=== PATIENT | male | born 1940 ===

== ENCOUNTER 2018-02-10 00:39 | Inpatient (IN) | payer OTHER ==
[~2018-02-10] VITALS: Ht 172.7 cm; Wt 75.3 kg
[2018-02-10] MEDS: NACL 0.9% 1,000 ML IV SCH (09:17)
[2018-02-10] MEDS ORDERED: HYDROcodone/APAP 5/325 MG 1 TAB TAB PO PRN (09:20)
[2018-02-10] MEDS ORDERED: ALBUTEROL SULFATE/IPRATROPIU 3 ML SOL IH PRN (09:20)
[2018-02-10] MEDS ORDERED: DOCUSATE SODIUM 100 MG GELCAP PO PRN (09:20)
[2018-02-10] MEDS ORDERED: MORPHINE SULFATE 2 MG/ML SYR IVP PRN (09:20)
[2018-02-10] MEDS ORDERED: MAGNESIUM HYDROXIDE 2400 MG/30 ML UDC PO PRN (09:20)
[2018-02-10] MEDS ORDERED: BISACODYL 5 MG TABEC PO PRN (09:20)
[2018-02-10] MEDS ORDERED: LORazepam 2 MG/ML VIAL IM/IVP PRN (09:20)
[2018-02-10] MEDS ORDERED: ZOLPIDEM 5 MG TAB PO PRN (09:20)
[2018-02-10] MEDS ORDERED: ONDANSETRON 4 MG/2 ML VIAL IM/IVP PRN (09:20)
[2018-02-10 09:30] VITALS: BP 121/71
[2018-02-10] MEDS ORDERED: AZITHROMYCIN 250 MG TAB PO SCH (10:41)
[2018-02-10 10:51] LABS: BASOPHILS % (AUTO) 0.5 % (0.0-2.0); EOSINOPHILS # (AUTO) 0.5 K/uL (0-0.4); EOSINOPHILS % (AUTO) 7.8 % (0.0-4.0); HEMATOCRIT 40.4 % (36-52); HEMOGLOBIN 13.7 g/dL (12.0-18.0); LYMPHOCYTES % (AUTO) 15.9 % (20.5-51.1); MEAN CORPUSCULAR HEMOGLOBIN 35 pg (27-31); MEAN CORPUSCULAR HGB CONC 34 g/dL (33-37); MEAN CORPUSCULAR VOLUME 104.5 fL (80-94); MONOCYTES # (AUTO) 0.6 K/uL (0.8-1.0); MONOCYTES % (AUTO) 10.3 % (1.7-9.3); NEUTROPHILS % (AUTO) 65.5 % (42.2-75.2); PLATELET COUNT (AUTO) 205 K/uL (140-450); RED BLOOD CELL COUNT(AUTO) 3.87 MIL/uL (4.20-6.10); RED CELL DISTRIBUTION WIDTH 14.4 % (11.6-13.7)
[2018-02-10 11:23] LABS: MAGNESIUM 1.9 mg/dL (1.8-2.4); PHOSPHORUS 3.5 mg/dL (2.5-4.9); THYROID STIMULATING HORMONE 2.56 uIU/mL (0.34-3.74)
[2018-02-10 11:25] LABS: PROTHROMBIN TIME 10.4 secs (10.8-13.4)
[2018-02-10 12:00] VITALS: BP 122/70
[2018-02-10 12:07] LABS: ASPARTATE AMINOTRANSFERASE 25 U/L (15-37); CARBON DIOXIDE 27.2 mmol/L (21-32); CHLORIDE 103 mmol/L (98-107); CHOL/HDL RATIO 3.8 (1-4.5); CREATININE 0.9 mg/dL (0.7-1.3); GLUCOSE 99 mg/dL (74-106); HDL CHOLESTEROL 32 mg/dL (40-60); LDL (CALC) 71 mg/dL (60-100); POTASSIUM 4.2 mmol/L (3.5-5.1); SODIUM SERUM 139 mmol/L (136-145); TOTAL BILIRUBIN 0.5 mg/dL (0.0-1.0); TRIGLYCERIDES 101 mg/dL (30-150); UREA NITROGEN, BLOOD 11 mg/dL (7-18)
[2018-02-10] MEDS: ALBUTEROL SULFATE/IPRATROPIU 3 ML SOL IH SCH ×4 (12:09→23:17)
[2018-02-10] MEDS: methylPREDNISolone SS 125 MG/2 ML VIAL IVP SCH ×2 (13:00→22:09)
[2018-02-10] MEDS: ACETAMINOPHEN 325 MG TAB PO PRN (15:25)
[2018-02-10 16:00] VITALS: BP 107/72
[2018-02-10 17:36] LABS: APPEARANCE,URINE CLEAR (CLEAR); BILIRUBIN,URINE NEGATIVE (NEGATIVE); BLOOD, URINE NEGATIVE (NEGATIVE); COLOR,URINE YELLOW (YELLOW); LEUKOCYTE ESTERASE ,URINE NEGATIVE (NEGATIVE); NITRITE, URINE NEGATIVE (NEGATIVE); UGLUCOSE NEGATIVE (NEGATIVE)
[2018-02-10 17:45] LABS: BARBITURATE, URINE NEG. ng/ml (NEG <=200); BENZODIAZEPINE, URINE NEG. ng/mL (NEG <=200); CANNABINOID, URINE NEG. ng/mL (NEG <=50); COCAINE, URINE NEG. ng/mL (NEG <=300); OPIATE, URINE POS. ng/mL (NEG <=2000); PHENCYCLIDINE SCREEN,URINE NEG. ng/mL (NEG <=25)
[2018-02-10] MEDS: BUDESONIDE 0.5 MG/2 ML NEBU INH SCH (19:14)
[2018-02-10 20:00] VITALS: BP 103/57
[2018-02-10] MEDS: MONTELUKAST SODIUM 10 MG TAB PO SCH (22:09)
[2018-02-11] VITALS: BP 90/45
[2018-02-11] MEDS: ALBUTEROL SULFATE/IPRATROPIU 3 ML SOL IH SCH ×6 (03:13→23:20)
[2018-02-11 04:00] VITALS: BP 111/49
[2018-02-11] MEDS: methylPREDNISolone SS 125 MG/2 ML VIAL IVP SCH (05:43)
[2018-02-11 06:19] LABS: FOLIC ACID 8.3 ng/mL (>3.0)
[2018-02-11] MEDS: BUDESONIDE 0.5 MG/2 ML NEBU INH SCH ×2 (06:30→19:52)
[2018-02-11 07:53] VITALS: BP 127/66
[2018-02-11] MEDS: NACL 0.9% 1,000 ML IV SCH (09:17)
[2018-02-11] MEDS: LACTOBACILLUS RHAMNOSUS GG 1 EACH CAP PO SCH (09:30)
[2018-02-11] MEDS: AZITHROMYCIN 250 MG TAB PO SCH (09:31)
[2018-02-11] MEDS: ACETAMINOPHEN 325 MG TAB PO PRN (14:26)
[2018-02-11 15:52] VITALS: BP 123/74
[2018-02-11 20:00] VITALS: BP 125/72
[2018-02-11] MEDS: MONTELUKAST SODIUM 10 MG TAB PO SCH (21:12)
[2018-02-12] VITALS: BP 97/49
[2018-02-12] MEDS: ALBUTEROL SULFATE/IPRATROPIU 3 ML SOL IH SCH ×3 (03:44→11:39)
[2018-02-12] MEDS: BUDESONIDE 0.5 MG/2 ML NEBU INH SCH (07:20)
[2018-02-12 08:00] VITALS: BP 144/80
[2018-02-12] MEDS: AZITHROMYCIN 250 MG TAB PO SCH (08:40)
[2018-02-12] MEDS: LACTOBACILLUS RHAMNOSUS GG 1 EACH CAP PO SCH (08:40)
[2018-02-12] MEDS ORDERED: ACET-2858 PO (09:06)
[2018-02-12] MEDS ORDERED: ALBU3SOL83 IH (09:08)
[2018-02-12] MEDS ORDERED: AZIT250T3 PO (09:16)
[2018-02-12 12:00] VITALS: BP 128/72
== END 2018-02-12 12:24 | disposition hospice, home (50) | DRG 193 ==
LOC: MTU 09:09
PROVIDERS: ADMIT General Practice; ATTEND General Practice
DX: J18.9 Pneumonia, unspecified organism (principal); J96.20 Acute and chronic respiratory failure, unspecified whether with hypoxia or hypercapnia; S32.019A Unspecified fracture of first lumbar vertebra, initial encounter for closed fracture; E46 Unspecified protein-calorie malnutrition; J44.1 Chronic obstructive pulmonary disease with (acute) exacerbation; J44.0 Chronic obstructive pulmonary disease with (acute) lower respiratory infection; Z51.5 Encounter for palliative care; D64.9 Anemia, unspecified; J84.112 Idiopathic pulmonary fibrosis; M47.9 Spondylosis, unspecified; W18.30XA Fall on same level, unspecified, initial encounter; D75.89 Other specified diseases of blood and blood-forming organs; Y93.89 Activity, other specified; Z99.81 Dependence on supplemental oxygen; Y92.89 Other specified places as the place of occurrence of the external cause; Y99.8 Other external cause status; Z68.25 Body mass index [BMI] 25.0-25.9, adult
CPT/HCPCS: 36415; 71045; 72110; 80053; 80305; 82607; 82746; 83036; 83690; 83735; 84100; 84443; 85025; 85610; 85730; 87081; 94640; 97535; J0696; J1644; J2405; J2930; J7060; J7620; J7626